=== PATIENT | female | born 1955 | race Caucasian/White ===

== ENCOUNTER 2017-02-10 17:28 | Emergency (ER) | payer OTHER ==
[2017-02-10 17:51] VITALS: BP 130/47
--- NOTE | 2017-02-10 18:05 | UC ---
Abdominal Pain Female HPI - HPI Summary HPI Summary: 61 year old female c/o increasing abdominal pain, flank pain. was diagnosed with UTI at 6 start and started on ABX, received call that ABX did not have coverage and was changed to Macrobid, since has been taking has had increasing diarrhea, increasing pain that is colicy in nature. Patient feels she will "loose it" due to pain. - History of Current Complaint Chief Complaint: UCBackPain Stated Complaint: BACK AND RIBS PAIN Time Seen by Provider: 02/10/17 17:45 Hx Obtained From: Patient, Family/Capital Equipment Specialist ?: No Onset/Duration: Sudden Onset, Lasting Days Timing: Constant Severity Initially: Moderate Severity Currently: Severe Pain Intensity: 10 Pain Scale Used: 0-10 Numeric Allergies/Adverse Reactions: Allergies Allergy/AdvReac Type Severity Reaction Status Date / Time No Known Allergies Allergy Verified 02/10/17 17:51 PMH/Surg Hx/FS Hx/Imm Hx Previously Healthy: Yes - Surgical History Surgical History: Yes Surgery Procedure, Year, and Place[place] [place] [facility] [place] - Social History Alcohol Use: None Substance Use Type: None Smoking Status (MU): Former Smoker Amount Used/How Often: 1 PPD X 25 YEARS When Did the Patient Quit Smoking/Using Tobacco: 5+ YEARS AGO Review of Systems Gastrointestinal: Abdominal Pain, Vomiting, Diarrhea, Nausea Is Patient Immunocompromised?: No All Other Systems Reviewed And Are Negative: Yes Physical Exam Triage Information Reviewed: Yes Appearance: Well-Nourished, Pain Distress - severe Vital Signs: Initial Vital Signs Temp 97.0 F 02/10/17 17:46 Pulse 97 02/10/17 17:46 Resp 18 02/10/17 17:46 BP 130/47 02/10/17 17:46 Pulse Ox 100 02/10/17 17:46 Eyes: Positive: Conjunctiva Clear Abdomen Description: Positive: Nontender, No Organomegaly, Soft, Distended. Negative: CVA Tenderness (R), CVA Tenderness (L) Musculoskeletal Exam: Normal Neurological Exam: Normal Psychological Exam: Normal Abd Pain Female Course/Dx - Course Course Of Treatment: due to severity of symptoms, patient was advised to go to ER. ambulace was offerred with further care, medications here at , however patient elected to drive herself due to cost. - Differential Dx/Diagnosis Provider Diagnoses: abdominal pain Discharge - Discharge Plan Condition: Good Disposition: OTHER Discharge Disposition Comment: gaurded, sent to ER for further work up Referrals: Aly Haq MD [Primary Care Provider] - Additional Instructions: - patient to go to ER due to increasing pain and further work up needed.
== END 2017-02-10 18:04 ==
LOC: UCEAST 17:28
DX: R10.9 Unspecified abdominal pain (principal); M54.5 Low back pain; R11.2 Nausea with vomiting, unspecified; R19.7 Diarrhea, unspecified; Z87.440 Personal history of urinary (tract) infections; Z87.891 Personal history of nicotine dependence
CPT/HCPCS: 99211; G0463

== ENCOUNTER 2017-02-10 18:19 | Emergency (ER) | payer OTHER ==
[2017-02-10] MEDS ORDERED: NS 0.9% 1000 ML* 1,000 ML IV ONE ×2 (18:45→20:01)
[2017-02-10 19:02] LABS: Hematocrit 38 % (35-47); Hemoglobin 13.1 g/dl (12.0-16.0); Mean Corpuscular HGB Conc 34 g/dl (31-36); Mean Corpuscular Hemoglobin 30 pg (27-31); Mean Corpuscular Volume 88 fL (80-97); Mean Platelet Volume 8 um3 (7.4-10.4); Red Blood Count 4.32 10^6/ul (4.0-5.4); Red Cell Distribution Width 13 % (10.5-15); White Blood Count 11.1 10^3/ul (3.5-10.8)
[2017-02-10 19:18] LABS: Albumin 4.1 g/dL (3.2-5.2); BUN/Creatinine Ratio 16.3 (8-20); C Reactive Protein 8.46 mg/L (< 5.00); EGFR African American 94.1 (>60); EGFR Non-African American 73.2 (>60); Globulin 3.3 g/dL (2-4); Magnesium 1.5 mg/dL (1.9-2.7); Potassium 3.9 mmol/L (3.5-5.0); Total Bilirubin 0.6 mg/dL (0.2-1.0); Total Protein 7.4 g/dL (6.4-8.9); Troponin I 0.01 ng/mL (<0.04)
[2017-02-10 19:34] LABS: Urine Bacteria Absent (Absent); Urine Bilirubin Negative (Negative); Urine Glucose Negative (Negative); Urine Nitrite Negative (Negative)
[2017-02-10] MEDS ORDERED: Magnesium Sulfate 2 GM IV* 2 GM/50 ML BAG IVPB ONE (20:00)
[2017-02-10] MEDS ORDERED: Iohexol 300* (CONTRAST) 10 ML SDV IV ONE (20:49)
--- NOTE | 2017-02-10 21:53 | RAD ---
INDICATION: Diffuse abdominal pain COMPARISON: None TECHNIQUE: Axial source images were obtained from the hemidiaphragms to the symphysis pubis following administration of oral and intravenous contrast. 91 mL Omnipaque 300 was utilized. Coronal and sagittal reconstructed images were acquired. Lung bases: The lung bases are clear. Liver: The liver is normal in size. There are no masses. There is no ductal dilatation. Gallbladder: There are no calcified gallstones. There is no evidence of wall thickening. There is a small amount of pericholecystic fluid. Spleen: The spleen is normal in size. There are no masses. Pancreas: There is no focal pancreatic mass or ductal dilatation. Adrenal glands: There is no evidence of adrenal mass. Kidneys: The kidneys are normal in size and position. There are prompt nephrograms and there is prompt excretion bilaterally. There are no renal parenchymal masses. There is no evidence of nephrolithiasis. Adenopathy: There is no evidence of adenopathy by size criteria. Fluid collections: There are no free or localized fluid collections. Vessels:There are no significant atherosclerotic changes involving the aorta. There is no focal aneurysm. The iliac vessels are normal in caliber. The IVC appears normal. GI tract: The upper GI tract is unremarkable. The ileocecal valve, cecum, and appendix are normal. There are scattered diverticula of the estrellita ascending, transverse, descending colon. There are moderate diverticula of the sigmoid colon. There is no CT evidence of acute diverticulitis. Pelvic organs: There is hysterectomy. There is no adnexal mass Bladder: There are no bladder masses. Abdominal and pelvic soft tissues: The extraperitoneal abdominal and pelvic soft tissues appear normal.. Osseous structures: There are no acute osseous findings. Other: None IMPRESSION: 1. Small amount of pericholecystic fluid. 2. Moderate diverticula predominantly involving the sigmoid colon. No CT evidence of acute diverticulitis. 3. Hysterectomy
--- NOTE | 2017-02-10 22:50 | ED ---
Joseph Dumont Alfonso, scribed for Shad Burns MD on 02/10/17 at 1946 . Abdominal Pain/Female - HPI Summary HPI Summary: This patient is a 61 year old F presenting to [facility] accompanied by with a chief complaint of shooting upper abdominal and bilateral flank pain which began last night, and is currently resolved. The pain radiated to her back. She had a UTI since two weeks ago for which she was put on Bactrium and then changed to macrobid yesterday (she has taken 3 pills). The patient rates the pain 8/10 in severity. Symptoms aggravated by position (sitting down). Symptoms alleviated by spontaneous resolution. Patient reports chills, nausea, and diarrhea (last night). Patient denies urinary symptoms. - History of Current Complaint Chief Complaint: EDGeneral Stated Complaint: ABD PAIN Time Seen by Provider: 02/10/17 19:15 Hx Obtained From: Patient Onset/Duration: Gradual Onset, Lasting Days - LAST NIGHT, Resolved Timing: Constant Severity Currently: Severe Pain Intensity: 10 Pain Scale Used: 0-10 Numeric Location: Flank - bilateral, Other - upper Radiates: Yes Radiates to: Back Character: Other: - Shooting Aggravating Factor(s): Other: - Position Alleviating Factor(s): Spontaneous Resolution Associated Signs and Symptoms: Positive: Other: - chills, nausea, and diarrhea ( last night). Patient denies urinary symptoms. Allergies/Adverse Reactions: Allergies Allergy/AdvReac Type Severity Reaction Status Date / Time No Known Allergies Allergy Verified 02/10/17 17:51 PMH/Surg Hx/FS Hx/Imm Hx Endocrine/Hematology History: Reports: Hx Thyroid Disease - HYPOTHYROID Denies: Hx Diabetes Cardiovascular History: Reports: Other Cardiovascular Problems/Disorders - HIGH CHOLESTEROL Denies: Hx Hypertension Respiratory History: Denies: Hx Asthma, Hx Chronic Obstructive Pulmonary Disease (COPD) GI History: Denies: Hx Ulcer Musculoskeletal History: Reports: Hx Arthritis - CONNECTIVE TISSUE DISEASE Sensory History: Reports: Hx Contacts or Glasses - GLASSES Denies: Hx Hearing Aid Opthamlomology History: Reports: Hx Contacts or Glasses - GLASSES EENT History: Denies: Hx Deafness - Cancer History Hx Chemotherapy: No Hx Radiation Therapy: No - Surgical History Surgery Procedure, Year, and Place: [facility] [place] Hx Anesthesia Reactions: No Infectious Disease History: No Infectious Disease History: Denies: Hx Clostridium Difficile, Hx Hepatitis, Hx Human Immunodeficiency Virus (HIV), Hx of Known/Suspected MRSA, Hx Shingles, Hx Tuberculosis, Hx Known/ Suspected VRE, Hx Known/Suspected VRSA, History Other Infectious Disease, Traveled Outside the [place] in Last 30 Days - Family History Known Family History: Positive: Cardiac Disease, Hypertension, Diabetes, Other - CVA - Social History Alcohol Use: Rare Substance Use Type: Reports: None Smoking Status (MU): Former Smoker Amount Used/How Often: 1 PPD X 25 YEARS Review of Systems Positive: Chills. Negative: Fever Positive: Abdominal Pain, Diarrhea, Nausea Positive: no symptoms reported All Other Systems Reviewed And Are Negative: Yes Physical Exam - Summary Physical Exam Summary: General: well-appearing, no pain distress Skin: warm, color reflects adequate perfusion, dry Head: normal Eyes: EOMI, ODALYS ENT: normal Neck: supple, nontender Respiratory: CTA, breath sounds present Cardiovascular: RRR Abdomen: soft, Mild diffuse abdominal tenderness Bowel: present Musculoskeletal: normal, strength/ROM intact Neurological: normal, sensory/motor intact, A&O x3 Psychological: affect/mood appropriate Triage Information Reviewed: Yes Vital Signs On Initial Exam: Initial Vitals Temp Pulse Resp BP Pulse Ox 97.2 F 89 20 85/68 100 02/10/17 18:21 02/10/17 18:21 02/10/17 18:21 02/10/17 18:21 02/10/17 18:21 Vital Signs Reviewed: Yes - [place] Coma Scale Coma Scale Total: 15 Diagnostics - Vital Signs Vital Signs Temp Pulse Resp BP Pulse Ox 02/10/17 19:20 114/44 02/10/17 19:00 133/110 02/10/17 18:33 87 100 02/10/17 18:32 125/50 02/10/17 18:21 97.2 F 89 20 85/68 100 - Laboratory Lab Results: Lab Results 02/10/17 02/10/17 02/10/17 Range/Units 18:48 18:48 18:48 WBC 11.1 H (3.5-10.8) 10^3/ul RBC 4.32 (4.0-5.4) 10^6/ul Hgb 13.1 (12.0-16.0) g/dl Hct 38 (35-47) % MCV 88 (80-97) fL MCH 30 (27-31) pg MCHC 34 (31-36) g/dl RDW 13 (10.5-15) % Plt Count 228 (150-450) 10^3/ul MPV 8 (7.4-10.4) um3 Neut % (Auto) 83.8 H (38-83) % Lymph % (Auto) 8.5 L (25-47) % Holt % (Auto) 5.6 (1-9) % Eos % (Auto) 1.3 (0-6) % Baso % (Auto) 0.8 (0-2) % Absolute Neuts (auto) 9.3 H (1.5-7.7) 10^3/ul Absolute Lymphs (auto) 0.9 L (1.0-4.8) 10^3/ul Absolute Monos (auto) 0.6 (0-0.8) 10^3/ul Absolute Eos (auto) 0.1 (0-0.6) 10^3/ul Absolute Basos (auto) 0.1 (0-0.2) 10^3/ul Absolute Nucleated RBC 0 10^3/ul Nucleated RBC % 0 Sodium 138 (133-145) mmol/L Potassium 3.9 (3.5-5.0) mmol/L Chloride 105 (101-111) mmol/L Carbon Dioxide 26 (22-32) mmol/L Anion Gap 7 (2-11) mmol/L BUN 13 (6-24) mg/dL Creatinine 0.80 (0.51-0.95) mg/dL Est GFR ( Amer) 94.1 (>60) Est GFR (Non-Af Amer) 73.2 (>60) BUN/Creatinine Ratio 16.3 (8-20) Glucose 128 H (70-100) mg/dL Lactic Acid 1.2 (0.5-2.0) mmol/L Calcium 9.0 (8.6-10.3) mg/dL Magnesium 1.5 L (1.9-2.7) mg/dL Total Bilirubin 0.60 (0.2-1.0) mg/dL AST 16 (13-39) U/L ALT 21 (7-52) U/L Alkaline Phosphatase 83 (34-104) U/L Troponin I 0.01 (<0.04) ng/mL C-Reactive Protein 8.46 H (< 5.00) mg/L Total Protein 7.4 (6.4-8.9) g/dL Albumin 4.1 (3.2-5.2) g/dL Globulin 3.3 (2-4) g/dL Albumin/Globulin Ratio 1.2 (1-3) Lipase 88 H (11.0-82.0) U/L Urine Color Urine Appearance Urine pH (5-9) Ur Specific [place] (1.010-1.030) Urine Protein (Negative) Urine Ketones (Negative) Urine Blood (Negative) Urine Nitrate (Negative) Urine Bilirubin (Negative) Urine Urobilinogen (Negative) Ur Leukocyte Esterase (Negative) Urine WBC (Auto) (Absent) Urine RBC (Auto) (Absent) Ur Squamous Epith Cells (Absent) Urine Bacteria (Absent) Hyaline Casts (Absent) Urine Glucose (Negative) 02/10/17 Range/Units 19:15 WBC (3.5-10.8) 10^3/ul RBC (4.0-5.4) 10^6/ul Hgb (12.0-16.0) g/dl Hct (35-47) % MCV (80-97) fL MCH (27-31) pg MCHC (31-36) g/dl RDW (10.5-15) % Plt Count (150-450) 10^3/ul MPV (7.4-10.4) um3 Neut % (Auto) (38-83) % Lymph % (Auto) (25-47) % Holt % (Auto) (1-9) % Eos % (Auto) (0-6) % Baso % (Auto) (0-2) % Absolute Neuts (auto) (1.5-7.7) 10^3/ul Absolute Lymphs (auto) (1.0-4.8) 10^3/ul Absolute Monos (auto) (0-0.8) 10^3/ul Absolute Eos (auto) (0-0.6) 10^3/ul Absolute Basos (auto) (0-0.2) 10^3/ul Absolute Nucleated RBC 10^3/ul Nucleated RBC % Sodium (133-145) mmol/L Potassium (3.5-5.0) mmol/L Chloride (101-111) mmol/L Carbon Dioxide (22-32) mmol/L Anion Gap (2-11) mmol/L BUN (6-24) mg/dL Creatinine (0.51-0.95) mg/dL Est GFR ( Amer) (>60) Est GFR (Non-Af Amer) (>60) BUN/Creatinine Ratio (8-20) Glucose (70-100) mg/dL Lactic Acid (0.5-2.0) mmol/L Calcium (8.6-10.3) mg/dL Magnesium (1.9-2.7) mg/dL Total Bilirubin (0.2-1.0) mg/dL AST (13-39) U/L ALT (7-52) U/L Alkaline Phosphatase (34-104) U/L Troponin I (<0.04) ng/mL C-Reactive Protein (< 5.00) mg/L Total Protein (6.4-8.9) g/dL Albumin (3.2-5.2) g/dL Globulin (2-4) g/dL Albumin/Globulin Ratio (1-3) Lipase (11.0-82.0) U/L Urine Color Yellow Urine Appearance Clear Urine pH 5.0 (5-9) Ur Specific [place] 1.024 (1.010-1.030) Urine Protein Negative (Negative) Urine Ketones Negative (Negative) Urine Blood Negative (Negative) Urine Nitrate Negative (Negative) Urine Bilirubin Negative (Negative) Urine Urobilinogen Negative (Negative) Ur Leukocyte Esterase Trace H (Negative) Urine WBC (Auto) Trace(0-5/hpf) (Absent) Urine RBC (Auto) Absent (Absent) Ur Squamous Epith Cells Present H (Absent) Urine Bacteria Absent (Absent) Hyaline Casts Present H (Absent) Urine Glucose Negative (Negative) Result Diagrams: 02/10/17 18:48 02/10/17 18:48 Lab Statement: Any lab studies that have been ordered have been reviewed, and results considered in the medical decision making process. - CT A/P CT Interpretation Completed By: Radiologist - 1. Small amount of pericholecystic fluid. 2. Moderate diverticula predominantly involving the sigmoid colon. No CT evidence of acute diverticulitis. 3. Hysterectomy. ED physician has reviewed this radiology report and agrees. - EKG 1853 Cardiac Rate: NL - BPM 88 EKG Rhythm: Sinus Rhythm ST Segment: Normal Ectopy: None Abdominal Pain Fem Course/Dx - Course Course Of Treatment: PAIN GREATLY REDUCED IN THE ED. PATIENT WAS TENDER IN THE UPPER ABD/EPIGASTRIUM. TROPONIN 7 HOURS AFTER ONSET OF PAIN WAS NEGATIVE. DISCUSSED RESULTS (TO INCLUDE THE MILDLY ELEVATED LIPASE) AND POSSIBLE CAUSES WITH PATIENT/. WITH THE PAIN GONE IN THE ED, WILL F/U WITH PMD; RETURN TO THE ED IF WORSE. - Diagnoses Provider Diagnoses: Abdominal pain, Chest pain, Elevated lipase Discharge - Discharge Plan Condition: Stable Disposition: HOME Patient Education Materials: Acute Abdominal Pain (ED), Chest Pain (ED) Referrals: Aly Haq MD [Primary Care Provider] - Additional Instructions: FOLLOW UP WITH YOUR DOCTOR TOMORROW, 02/11/17. RETURN TO THE EMERGENCY DEPARTMENT FOR ANY WORSENING OF YOUR CONDITION; CHEST OR ABDOMINAL PAIN, FEVER, VOMITING, SHORTNESS OF BREATH, YOU FEEL ILL OR QUESTIONS OR CONCERNS. The documentation as recorded by the Joseph lea Alfonso accurately reflects the service I personally performed and the decisions made by me, Shad Burns MD.
[2017-02-10 23:07] VITALS: BP 122/47
== END 2017-02-10 23:07 | disposition home or self-care (01) ==
LOC: ED 18:19
DX: R07.9 Chest pain, unspecified (principal); R10.9 Unspecified abdominal pain; R19.7 Diarrhea, unspecified; R74.8 Abnormal levels of other serum enzymes
CPT/HCPCS: 36415; 74177; 80053; 81003; 81015; 83605; 83690; 83735; 84443; 84484; 85025; 86140; 87086; 93005; 96365; 99283; J3475; Q9967

== ENCOUNTER 2018-02-09 10:24 | Day surgery (SDC) | payer OTHER ==
[~2018-02-09 10:24] MED LIST: Acetaminophen TAB* 325 MG PO PRN; Buffered Lidocaine 0.9% SYRIN* 5 ML/SYR SYRINGE INTRADERM ONE
[2018-02-09] MEDS ORDERED: Midazolam* 1 MG/ML 2 ML VIAL (2 MG) ONE ×2 (11:59→12:59)
[2018-02-09] MEDS ORDERED: fentaNYL* 50 MCG/ML 2 ML VIAL (100 MCG VIAL) ONE (11:59)
[2018-02-09 12:53] VITALS: BP 111/55
[2018-02-09] MEDS ORDERED: Cyclopentolate 1% OPTH.SOL* 2 ML BTL ONE (15:31)
[2018-02-09] MEDS ORDERED: Ketorolac 0.5% OPHTH (NF) 0.5 % 5 ML BTL ONE (15:31)
[2018-02-09] MEDS ORDERED: Neomycin/Polymy/Dex OPHTH.OIN* 3.5 GM ONE (15:31)
[2018-02-09] MEDS ORDERED: Tropicamide 1% OPTH.SOL* BTL ONE (15:31)
[2018-02-09] MEDS ORDERED: Phenylephrine 2.5% OPTH.SOL* 2 ML BTL ONE (15:31)
[2018-02-09] MEDS ORDERED: Tetracaine 0.5% OPTH.SOL 4 ML* 1 DROP BTL ONE (15:31)
[2018-02-09] MEDS ORDERED: Lidocaine 1%* 5 ML VIAL ONE (15:31)
--- NOTE | 2018-02-09 22:06 | OP ---
DATE OF OPERATION: 02/09/18 - [facility] DATE OF : 57 SURGEON: Dr. Konstantin Singh. LAND SURVEYING SURVEY WORKER: None. ANESTHESIA: Topical with intravenous sedation. PRE-OP DIAGNOSIS: Cataract with stigmatism, right eye. POST-OP DIAGNOSIS: Cataract with stigmatism, right eye. OPERATIVE PROCEDURE: Phacoemulsification and cataract extraction with posterior chamber toric intraocular lens implant, right eye. COMPLICATIONS: None. BLOOD LOSS: None. DESCRIPTION OF PROCEDURE: The patient was seen preoperatively where roseanne was made at the 6 o'clock position of the limbus of the right eye while she was in an upright position. The patient was subsequently brought to the operating room where she was given a small amount of intravenous sedation as well as topical Tetracaine eye drops to the right eye. The patient was prepped and draped in the usual sterile fashion for ophthalmic surgery and attention was directed to the right eye where speculum was placed. A paracentesis was created at the 11 o'clock position and 0.1 cc of 1% preservative-free Lidocaine was injected into the anterior chamber followed by DisCoVisc. The eye was digitally stabilized. A 2.75 mm keratome was used to create a triplanar clear corneal incision at the 9 o'clock position. A continuous curvilinear capsulorrhexis was created with a cystotome and Utrata forceps. BSS on a cannula was used to hydrodissect the lens and the capsule. Phacoemulsification was performed in a [id number] technique to create four fragments, which were removed. Residual cortical material was removed with irrigation and aspiration. Healon was used to inflate the capsular bag. A Miller marker was used to roseanne the 113 degree axis at the limbus. An [id number] diopter lens was folded and inserted into the capsular bag. It was dialed to the appropriate axial alignment using Sinskey hook. The Sinskey hook remained in the eye through paracentesis to stabilize the lens while irrigation and aspiration were performed to remove viscoelastic from the eye. The paresthesia was removed. BSS on a cannula was used to hydrate the corneal stroma and seal the wound. At the end of the case, the pupil was round. The lens was centered and stable and axially aligned. The eye pressure appeared normal and the wound was water tight. The speculum was removed from the eye. Topical Maxitrol ointment was placed on the surface of the eye. Eye was closed, patched and shielded and the patient was sent to the recovery room in stable condition with postop instructions and follow-up appointment given. [id number]/CPS #: [id number] MTDD
== END 2018-02-09 12:55 | disposition home or self-care (01) ==
LOC: OREAST 10:24
PROVIDERS: ATTEND Ophthalmology
DX: H25.11 Age-related nuclear cataract, right eye (principal); H52.201 Unspecified astigmatism, right eye; I10 Essential (primary) hypertension; Z87.891 Personal history of nicotine dependence; E03.9 Hypothyroidism, unspecified; J30.89 Other allergic rhinitis; M32.9 Systemic lupus erythematosus, unspecified
CPT/HCPCS: A9270-GY; J2250; J3010; V2787

== ENCOUNTER 2018-02-16 08:29 | Day surgery (SDC) | payer OTHER ==
[2018-02-16] MEDS ORDERED: fentaNYL* 50 MCG/ML 2 ML VIAL (100 MCG VIAL) ONE (09:06)
[2018-02-16] MEDS ORDERED: Midazolam* 1 MG/ML 2 ML VIAL (2 MG) ONE (09:06)
[2018-02-16 10:27] VITALS: BP 104/50
[2018-02-16] MEDS ORDERED: Tetracaine 0.5% OPTH.SOL 4 ML* 1 DROP BTL ONE (12:25)
[2018-02-16] MEDS ORDERED: Lidocaine 1%* 5 ML VIAL ONE (12:25)
[2018-02-16] MEDS ORDERED: Cyclopentolate 1% OPTH.SOL* 2 ML BTL ONE (12:25)
[2018-02-16] MEDS ORDERED: Ketorolac 0.5% OPHTH (NF) 0.5 % 5 ML BTL ONE (12:25)
[2018-02-16] MEDS ORDERED: Neomycin/Polymy/Dex OPHTH.OIN* 3.5 GM ONE (12:25)
[2018-02-16] MEDS ORDERED: Tropicamide 1% OPTH.SOL* BTL ONE (12:25)
[2018-02-16] MEDS ORDERED: Phenylephrine 2.5% OPTH.SOL* 2 ML BTL ONE (12:25)
--- NOTE | 2018-02-16 21:15 | OP ---
DATE OF OPERATION: 02/16/18 [facility] DATE OF : 57 SURGEON: Dr. Konstantin Singh. CANARY RAISER: None. ANESTHESIA: Topical with intravenous sedation. PRE-OP DIAGNOSIS: Cataract, left eye. POST-OP DIAGNOSIS: Cataract, left eye. OPERATIVE PROCEDURE: Phacoemulsification and cataract extraction with posterior chamber intraocular lens implant, left eye. COMPLICATIONS: None. BLOOD LOSS: None. DESCRIPTION OF PROCEDURE: The patient was brought to the operating room and received a small amount of intravenous sedation. A drop of Tetracaine was placed in her left eye. She was prepped and draped in the usual sterile fashion for ophthalmic surgery and attention was directed to the left eye where a speculum was placed. A paracentesis was created at the 5 o'clock position and 0.1 cc of 1 percent preservative-free Lidocaine was injected into the anterior chamber followed by DisCoVisc. The eye was digitally stabilized while a 2.75 mm keratome was used to create a triplanar clear corneal incision at the 3 o'clock position. A continuous curvilinear capsulorrhexis was created with a cystotome and Utrata forceps. BSS on a cannula was used to hydrodissect the lens from the capsule. Phacoemulsification was performed in a divide-and- conquer technique to create four fragments which were removed. Residual cortical material was removed with irrigation and aspiration. DisCoVisc was used to inflate the capsular bag and an [id number] 28.0 diopter lens was folded and inserted into the capsular bag. DisCoVisc was removed using irrigation and aspiration. BSS on a cannula was used to hydrate the corneal stroma and seal the wound. At the end of the case the pupil was round and the lens was centered. The eye was of normal pressure and the wound was water tight. The speculum was removed and topical Maxitrol ointment was placed on the surface of the eye. The eye was closed, patched and shielded and the patient was sent to the recovery room in stable condition with post operative instructions and follow-up appointment given. [id number]/CPS #: [id number] MTDD
== END 2018-02-16 10:31 | disposition home or self-care (01) ==
LOC: OREAST 08:29
PROVIDERS: ATTEND Ophthalmology
DX: Z01.818 Encounter for other preprocedural examination (principal); H25.13 Age-related nuclear cataract, bilateral; E78.00 Pure hypercholesterolemia, unspecified; E03.9 Hypothyroidism, unspecified; M35.9 Systemic involvement of connective tissue, unspecified; Z87.891 Personal history of nicotine dependence
CPT/HCPCS: A9270-GY; J2250; J3010; V2632

== ENCOUNTER 2018-11-21 19:22 | Emergency (ER) | payer OTHER ==
[2018-11-21 19:39] VITALS: BP 133/61
--- NOTE | 2018-11-21 20:12 | UC ---
Respiratory Complaint HPI - HPI Summary HPI Summary: 2 WEEKS OF URI SYMPTOMS INCLUDING COUGH, CONGESTION, SORE THROAT AND FATIGUE. FEELS HER SYMPTOMS HAVE MOVED INTO HER CHEST. NASAL CONGESTION HAS RESOLVED AND HER HEAD SYMPTOMS ARE IMPROVED BUT SHE IS CONCERNED ABOUT BRONCHITIS OR PNEUMONIA. - History of Current Complaint Chief Complaint: UCRespiratory Stated Complaint: CHEST CONGESTION Time Seen by Provider: 11/21/18 19:57 Hx Obtained From: Patient Onset/Duration: Gradual Onset, Lasting Weeks, Still Present Timing: Constant Severity Initially: Moderate Severity Currently: Moderate Pain Intensity: 0 Pain Scale Used: 0-10 Numeric Character: Cough: Nonproductive Aggravating Factors: Nothing Alleviating Factors: Nothing Associated Signs And Symptoms: Positive: URI, Nasal Congestion. Negative: Dyspnea, Fever, Wheezing, Hoarseness, Sinus Discomfort - Allergies/Home Medications Allergies/Adverse Reactions: Allergies Allergy/AdvReac Type Severity Reaction Status Date / Time No Known Allergies Allergy Verified 11/21/18 19:40 Home Medications: Home Medications Ibuprofen TAB* [Motrin TAB* 800 MG] 800 mg PO Q6H PRN 11/21/18 [History Confirmed 11/21/18] [id number] ER TAB [Mucinex*] 1,200 mg PO BID 11/21/18 [History Confirmed ] PMH/Surg Hx/FS Hx/Imm Hx - Additional Past Medical History Additional PMH: LUPUS Endocrine History: Hypothyroidism Cardiovascular History: Hypertension - Surgical History Surgical History: Yes Surgery Procedure, Year, and Place: [place] [place] - Family History Known Family History: Positive: Cardiac Disease, Hypertension, Diabetes, Other - CVA - Social History Alcohol Use: Rare Substance Use Type: None Smoking Status (MU): Never Smoked Tobacco Amount Used/How Often: 1 PPD X 25 YEARS When Did the Patient Quit Smoking/Using Tobacco: 2009 Review of Systems All Other Systems Reviewed And Are Negative: Yes Constitutional: Positive: Fatigue ENT: Positive: Sore Throat, Nasal Discharge Respiratory: Positive: Cough Cardiovascular: Positive: Negative Gastrointestinal: Positive: Negative Physical Exam Triage Information Reviewed: Yes Appearance: Well-Appearing, No Pain Distress, Well-Nourished Vital Signs: Initial Vital Signs Temp 98.2 F 11/21/18 19:32 Pulse 77 11/21/18 19:32 Resp 16 11/21/18 19:32 BP 133/61 11/21/18 19:32 Pulse Ox 99 11/21/18 19:32 Vital Signs Reviewed: Yes Eyes: Positive: Conjunctiva Clear ENT: Positive: Hearing grossly normal, Pharynx normal, TMs normal Neck: Positive: Supple, Nontender, No Lymphadenopathy Respiratory Exam: Normal Cardiovascular Exam: Normal Abdomen Description: Positive: Soft Musculoskeletal: Positive: No Edema Neurological: Positive: Alert Psychological: Positive: Age Appropriate Behavior Skin: Negative: Rashes Respiratory Course/Dx - Course Course Of Treatment: PATIENT'S PRESENTATION IS NOT CONSISTENT WITH PNEUMONIA OR BACTERIAL INFECTION AT PRESENT. IF ANYTHING HER SYMPTOMS ARE SLIGHTLY BETTER NOW. NO INDICATION FOR CHEST X-RAY TODAY. WILL TREAT WITH PREDNISONE TO HELP WITH AIRWAY INFLAMMATION AND REFILL PATIENT'S ALBUTEROL INHALER. SHE DECLINES PRESCRIPTION COUGH MEDICINE STATING THAT OTC MUCINEX IS HELPFUL. IS IN AGREEMENT WITH HOLDING OFF ANTIBIOTICS FOR NOW AND WILL FOLLOW-UP IF SHE IS NOT IMPROVED WITH THE ABOVE TREATMENT. - Differential Dx/Diagnosis Provider Diagnosis: Acute bronchitis Discharge - Sign-Out/Discharge Documenting (check all that apply): Patient Departure All imaging exams completed and their final reports reviewed: No Studies - Discharge Plan Condition: Stable Disposition: HOME Prescriptions: Albuterol HFA INHALER* [Ventolin HFA Inhaler*] 2 puff INH Q4H PRN #1 mdi PRN Reason: Shortness Of Breath predniSONE TAB* [Deltasone TAB*] 50 mg PO DAILY #5 tab Patient Education Materials: Acute Bronchitis (ED) Referrals: Aly Haq MD [Primary Care Provider] - If Needed Additional Instructions: YOUR SYMPTOMS ARE LIKELY VIRALLY MEDIATED AND SHOULD RESOLVE ON THEIR OWN WITH TIME. NO INDICATION FOR ANTIBIOTICS AT PRESENT. CLINICALLY YOUR PRESENTATION IS NOT CONSISTENT WITH PNEUMONIA. REST, HYDRATE, OTC MEDS NEEDED. WILL TREAT WITH PREDNISONE TO HELP WITH AIRWAY INFLAMMATION AND REFILL YOUR ALBUTEROL INHALER. SEEK FOLLOW-UP IF YOU ARE NOT IMPROVING OVER THE NEXT WEEK OR SO. - Billing Disposition and Condition Condition: STABLE Disposition: Home
== END 2018-11-21 20:28 | disposition home or self-care (01) ==
LOC: UCEAST 19:22
DX: J20.9 Acute bronchitis, unspecified (principal); E03.9 Hypothyroidism, unspecified; I10 Essential (primary) hypertension
CPT/HCPCS: 99212; G0463

== ENCOUNTER 2019-01-26 18:30 | Emergency (ER) | payer OTHER ==
--- OUTSIDE RECORDS SUMMARY | 2019-01-26 18:56 | XMS REPORT | Continuity of Care Document ---
:1955 External Reference #:[id number] Author Name Obed Frost, FACC (transmitted by agent of provider Asya Kevin) Address [address] [place] [address] Care Team Providers Name Role Phone Aly Haq MD - Family Care Team Information Luncheonette Manager [phone] Medicine Yordy Hassan MD - Surgery Care Team Information Luncheonette Manager [phone] Problems Active Problems Provider Date Contusion of thigh Danny Singh M.D. Onset: 08/11/2018 Atherosclerosis of arteries of the Danny Singh M.D. Onset: 05/19/2018 extremities Social History Type Date Description Comments Sex Unknown ETOH Use Drinks Alcoholic Beverages Occasionally Tobacco Use Start: Unknown End: Patient is a former smoker 2009 quit Unknown Recreational Drug Use Denies Drug Use Smoking Status Reviewed: 01/12/19 Patient is a former smoker 2010 quit Exercise Type/Frequency Exercises regularly Allergies, Adverse Reactions, Alerts Active Allergies Reaction Severity Comments Date Wellbutrin Sucidial Ideation 10/08/2017 Pravastatin possible myalgias 10/08/2017 Inactive Allergies NKDA 01/16/2011 Medications Active Medications SIG Qnty Indications Ordering Date Provider Proair HFA Use as needed 8.500gm J45.998 Obed Frost, 11/11/2017 108(90Base) before activity DO FACC mcg/Act Aerosol Aspirin Adult Low Dose 1 by mouth every 90tabs R07.9 Obed Frost, day DO FACC 81mg Tablets DR Amlodipine Besylate 1 by mouth every 30tabs R07.9 Obed Frost, 2017 5mg day DO FACC Tablets Levothyroxine Sodium 1 po qd 30tabs Unknown 50mcg Tablets Ibuprofen by mouth qid as Unknown 800mg Tablets needed Plaquenil 2 tablet po Unknown 200mg Tablets daily Medications Administered in Office Medication SIG Qnty Indications Ordering Provider Date Technetium TC 99M Obed Frost, DO FACC 10/22/2017 Tetrofosmin, Per Unit Dose Up To 40 Millicuries Injection Immunizations Description No Information Available Vital Signs Date Vital Result Comment 01/12/2019 8:00am Height 64 inches 5'4" Weight 152.38 lb without shoes Heart Rate 80 /min radial BP Systolic Sitting 120 mmHg Lue BP Diastolic Sitting 78 mmHg Lue BMI (Body Mass Index) 26.2 kg/m2 08/11/2018 9:58am Height 64 inches 5'4" Weight 155.00 lb Heart Rate 68 /min BP Systolic Sitting 116 mmHg BP Diastolic Sitting 70 mmHg Respiratory Rate 16 /min BMI (Body Mass Index) 26.6 kg/m2 Results Description No Information Available Procedures Description No Information Available Medical Devices Description No Information Available Encounters Type Date Location Provider Dx Diagnosis Office Visit 01/12/2019 Keven [facility] I70.222 [facility] [place] 8:15a Medicine Of Jacob Singh M.D. arteries of extremities w rest pain, left leg Office Visit 12/13/2018 [facility] [place] Samantha K52.9 Noninfective 9:46a Assoc,pc Alexia Dotnic, gastroenteritis and Hospitalists EXPORT FREIGHT MANAGER colitis, unspecified D64.9 Anemia, unspecified K92.2 Gastrointestinal hemorrhage, unspecified Office Visit 12/11/2018 9:45a [facility] [place] Assoc,pc Brigid Shortle, K92.1 [facility] Hospitalists EXPORT FREIGHT MANAGER R10.9 Unspecified abdominal pain D72.829 Elevated white blood cell count, unspecified Office Visit 08/11/2018 9:15a [facility] Danny Stratton I70.223 [facility] [place] Medicine Of Jacob Singh M.D. arteries of extrm w rest pain, bilateral legs S70.11xA Contusion of right thigh, initial encounter Assessments Date Code Description Provider 01/12/2019 I70.222 Atherosclerosis of [place] arteries of Danny Singh M.D. extremities with rest pain, left leg 12/13/2018 K52.9 Noninfective gastroenteritis and Samantha [place] Bennett, MARIANNA colitis, unspecified 12/13/2018 D64.9 Anemia, unspecified Samantha [place] Bennett, EXPORT FREIGHT MANAGER 12/13/2018 K92.2 Gastrointestinal hemorrhage, Samantha [place] Bennett, EXPORT FREIGHT MANAGER unspecified 12/12/2018 K52.9 Noninfective gastroenteritis and NASIM Sen colitis, unspecified 12/11/2018 K92.1 [facility] Brigid Marizol, EXPORT FREIGHT MANAGER 12/11/2018 R10.9 Unspecified abdominal pain Brigid Marizol, EXPORT FREIGHT MANAGER 12/11/2018 D72.829 Elevated white blood cell count, Brigid Duquesravan, EXPORT FREIGHT MANAGER unspecified 08/11/2018 I70.223 Atherosclerosis of [place] arteries of Danny Singh M.D. extremities with rest 08/11/2018 S70.11xA Contusion of right thigh, initial Danny Singh M.D. encounter Plan of Treatment 01/12/2019 - Danny Singh M.D.I70.222 Atherosclerosis of [place] arteries of extremities with rest pain, left legNew Labs:Basic Metabolic Panel, Ordered: New Xrays:Angio Pelvic Selective Supraselect, Ordered: 01/12/19Comments: The following was discussed with Rahel at the time of her clinic visit:Although there was no significant change on the post angiography GUILLE, the patient appears to have experienced significant clinicalbenefit with near complete resolution of the claudication symptoms she had prior to angioplasty of the right common and external iliac arteries.The patient occasionally experiences pain in the left legconsistent with nighttime rest pain and based on her response to angioplasty on the right, she may experience further clinical improvement after similar angioplasty in the left iliac arteries. Functional Status Description No Information Available Mental Status Description No Information Available Referrals Description No Information Available
--- OUTSIDE RECORDS SUMMARY | 2019-01-26 18:56 | XMS REPORT | Continuity of Care Document ---
:1955 External Reference #:[id number] Author Name Selin Tamayo, MARIANNA Address [address] [place] [address] Care Team Providers Name Role Phone [facility] - Care Team Information Relief Docking Master [phone] Gastroenterology Elie Diaz MD - Rheumatology Care Team Information Relief Docking Master Aly Haq MD - Family Medicine Care Team Information Relief Docking Master Konstantin Singh - Ophthalmology Care Team Information Relief Docking Master [phone] Bladimir Velazquez DO - Gastroenterology Care Team Information Relief Docking Master Problems Active Problems Provider Date Hypothyroidism Aly Haq M.D. Onset: 12/28/2010 Autoimmune disease Barbara Patel Onset: 06/01/2012 Collagen disease Aly Haq M.D. Onset: 04/04/2014 Hyperlipidemia Aly Haq M.D. Onset: 04/04/2014 Other malaise Aly Haq M.D. Onset: 06/26/2015 Social History Type Date Description Comments Sex Unknown Tobacco Use Start: 04/20/80 End: Former Cigarette Smoker > 1 ppd 04/20/09 ETOH Use Social Alcohol 3 Kaluas /month. frozen anish. Tobacco Use Start: Unknown End: Patient is a former smoker Unknown Smoking Status Reviewed: 01/25/19 Patient is a former smoker Allergies, Adverse Reactions, Alerts Active Allergies Reaction Severity Comments Date Wellbutrin Itching? 07/02/2005 Medications Active Medications SIG Qnty Indications Ordering Date Provider Nitrofurantoin 1 by mouth twice 10caps N39.0 Selin Samara 01/25/2019 Macrocrystal a day x 5 days MARIANNA Tamayo 100mg Capsules Montelukast Sodium 1 by mouth every 90Tablet J30.9 Aly Real 12/22/2018 10mg day Jennifer Haq Tablets Mometasone Furoate 2 sprays in each 17gm Raquel Peralta 12/17/2018 nostril once MARIANNA Ashraf 50mcg/Act Suspension daily Cetirizine HCL 1 by mouth every 30tabs Raquel Peralta 12/17/2018 10mg day MARIANNA Ashraf Tablets Betamethasone apply to 15gm L30.9 Raquel Peralta 12/17/2018 Dipropionate affected area on MARIANNA Ashraf 0.05% Cream legs twice daily for 14 days. Symbicort 1 puff inhaled 12gm J06.9 Raquel Peralta 12/03/2018 160-4.5mcg/Act twice daily MARIANNA Ashraf Aerosol Ventolin HFA take 1-2 puffs 18gm J06.9 Raquel Peralta 12/03/2018 108(90Base) inhaled every 4 MARIANNA Ashraf mcg/Act Aerosol hours as needed for wheezing or tightness in the chest Aspirin Takes daily 30tabs Aly Real 11/24/[address] Eun M.D. Levothyroxine Sodium Take 1 Tablet By 90tabs Aly Real 06/23/2013 Mouth Daily Jennifer Haq 50mcg Tablets Ibuprofen Take 1 Tablet By 360tabs M79.1 Neda Ren, 09/07/2009 800mg Tablets Mouth 4 Times COURSEWARE DEVELOPER Daily With Food Plaquenil 2 po qd 60tabs Unknown 200mg Tablets Amlodipine Besylate take 1 tablet by 30tabs Aly Real 5mg mouth once daily Jennifer Haq Tablets Pantoprazole Sodium 1 by mouth every Unknown 20mg day Tablets DR Nito Polk Fluconazole one tab by 2tabs B37.3 Raquel Ashraf, 12/17/2018 - 150mg mouth once, august EXPORT ADMINISTRATOR 12/22/2018 Tablets repeat in five days Benzonatate 1 tablet by 30caps J06.9 Aly Haq, 11/24/2018 - 100mg mouth three M.DRosario 12/22/2018 Capsules times a day as needed for cough (max 6 a day) Immunizations CPT Code Status Date Vaccine Lot # [id number] Given 12/17/2018 Pneumococcal Conjugate Vacc-13 [id number] Given 02/26/2018 Influenza Vac, Quadrivalent, [place] [id number] Given 08/24/2017 Tetanus And Diptheria Adult Preservative Free [id number] >7Yrs Vital Signs Date Vital Result Comment 01/25/2019 3:50pm BP Systolic 112 mmHg BP Diastolic 60 mmHg Heart Rate 80 /min Body Temperature 97.2 F Respiratory Rate 16 /min Height 63 inches 5'3" Weight 152.00 lb BMI (Body Mass Index) 26.9 kg/m2 12/22/2018 1:01pm BP Systolic 122 mmHg BP Diastolic 70 mmHg Heart Rate 76 /min Body Temperature 98.2 F Respiratory Rate 16 /min O2 % BldC Oximetry 98 % Height 63 inches 5'3" Weight 154.00 lb BMI (Body Mass Index) 27.3 kg/m2 Results Test Date Facility Test Result H/L Range Note Ua - Micro (Fma) 01/25/2019 [facility] Appearance cloudy (607)- - Color yellow Glucose, Urine ([facility]ma/CMC/CTX) neg Bilirubin neg Ketones ng SP Grav >1.030 Blood neg PH 5.5 Protein neg Urobil 0.2 Nitrite neg Leukocytes (a/CMC/Centrex) small Hyaline - /Lpf Granular - /Lpf WBC (a,Centrex) 20-25 RBC 0-1 Mucus (Fma/CBC/Centrex) - /Lpf Epith occ /Lpf Bacteria trace /Hpf Amorphous (Fma/CMC/Centrex) - /Lpf Crystals, Fluid (Fma/CMC/CTX) - Z#Comments - Laboratory test 01/14/2019 [facility] [place] [facility] [place] SEE RESULT 1, 2 finding BELOW Hemoglobin/Hematac 12/11/2018 [facility] [place] Hemoglobin 12.5 g/dL Normal 12.0-16. rit 0 Hematocrit 37 % Normal 35-47 Stool Occult Blood 12/11/2018 [facility] [place] Stool Occult SEE RESULT BELOW 3 Diag Blood, Diag CBC Auto Diff 12/11/2018 [facility] [place] White Blood Count 10.9 10^3/uL High 3.5- 10.8 Red Blood Count 4.74 10^6/uL Normal 3.70-4.87 Hemoglobin 14.3 g/dL Normal 12.0-16.0 Hematocrit 41 % Normal 35-47 Mean Corpuscular Volume 87 fL Normal 80-97 Mean Corpuscular Hemoglobin 30 pg Normal 27-31 Mean Corpuscular HGB Conc 35 g/dL Normal 31-36 Red Cell Distribution Width 13 % Normal 10-15 Platelet Count 262 10^3/uL Normal 150-450 Mean Platelet Volume 7.4 fL Normal 7.4-10.4 Abs Neutrophils 8.3 10^3/uL High 1.5-7.7 Abs Lymphocytes 1.6 10^3/uL Normal 1.0-4.8 Abs Monocytes 0.7 10^3/uL Normal 0-0.8 Abs Eosinophils 0.2 10^3/uL Normal 0-0.6 Abs Basophils 0.1 10^3/uL Normal 0-0.2 Abs Nucleated RBC 0.0 10^3/uL Granulocyte % 75.9 % Lymphocyte % 15.0 % Monocyte % 6.0 % Eosinophil % 2.1 % Basophil % 1.0 % Nucleated Red Blood Cells % 0.0 Laboratory test finding 12/11/2018 [facility] [place] Lactic Acid 1.0 mmol/L Normal 0.5- 2.0 4 Comp Metabolic Panel 12/11/2018 [facility] Sodium 137 mmol/L Normal 135-145 Potassium 4.2 mmol/L Normal 3.5-5.0 Chloride 106 mmol/L Normal 101-111 Co2 Carbon Dioxide 26 mmol/L Normal 22-32 Anion Gap 5 mmol/L Normal 2-11 Glucose 110 mg/dL High 70-100 Blood Urea Nitrogen 15 mg/dL Normal 6-24 Creatinine 0.82 mg/dL Normal 0.51-0.95 BUN/Creatinine Ratio 18.3 Normal 8-20 Calcium 8.9 mg/dL Normal 8.6-10.3 Total Protein 7.2 g/dL Normal 6.4-8.9 Albumin 4.2 g/dL Normal 3.2-5.2 Globulin 3.0 g/dL Normal 2-4 Albumin/Globulin Ratio 1.4 Normal 1-3 Total Bilirubin 0.60 mg/dL Normal 0.2-1.0 Alkaline Phosphatase 108 U/L High 34-104 Alt 17 U/L Normal 7-52 Ast 17 U/L Normal 13-39 Egfr Non- 70.6 >60 Egfr 85.5 >60 5 Laboratory test finding 12/11/2018 [facility] [place] Magnesium 2.1 mg/dL Normal 1.9- 2.7 Lipase 16 U/L Normal 11.0-82.0 C Reactive Protein 6.45 mg/L Normal <8.01 TSH (Thyroid Stim Horm) 2.46 mcIU/mL Normal 0.34-5.60 Urinalysis Profile 12/11/2018 [facility] [place] Urine Color Yellow Urine Appearance Clear Urine Specific [place] 1.040 High 1.010-1.030 Urine pH 5.0 Normal 5-9 Urine Urobilinogen Negative Negative Urine Ketones Negative Negative Urine Protein Negative Negative Urine Leukocytes 1+ Abnormal Negative Urine Blood Negative Negative Urine Nitrite Negative Negative Urine Bilirubin Negative Negative Urine Glucose Negative Negative Urine White Blood Cell 1+(6-10/hpf) Abnormal Absent Urine Red Blood Cell Absent Absent Urine Bacteria Absent Absent Urine Squamous Epithelial Cell Present Abnormal Absent Urine Culture And Sensitivities 12/11/2018 [facility] [place] Urine Culture SEE RESULT BELOW 6 1 [id number] 2 SEE RESULT BELOW Name: RAHEL GALVEZ : [address]: Bladimir Velazquez DO Acct: [id number] Unit: [id number] AGE: 63 Location: [facility] Re01/14/19 SEX: F Status: DEP REF SPEC: [id number] JIMENEZ: 01/14/19-[address] [facility] [address]: Bladimir Velazquez DO REQ: [id number] RECD: 01/14/19-1249 STATUS: MARTA SKAGGS DR: Aly Haq MD _ ORDERED: LEVEL 4/6 COMMENTS: [id number] FINAL DIAGNOSIS 1. Colon, right, biopsies: -- Large intestinal mucosa with mild architectural disorder compatible with repair. -- No evidence of microscopic/lymphocytic colitis, collagenous colitis or other chronic inflammatory bowel process identified. 2. Colon, cecum, biopsy: -- Serrated adenomatous polyp. -- No high grade dysplasia or malignancy identified. 3. Colon, cecum near valve, biopsy: -- Sessile serrated adenomatous polyp. -- No high grade dysplasia or malignancy identified. 4. Colon, sigmoid, biopsy: -- Hyperplastic polyp. 5. Colon, left, biopsy: -- Hyperplastic polyp. 6. Colon, rectum, biopsy: -- Hyperplastic polyp. CLINICAL HISTORY Colitis POST-OPERATIVE DIAGNOSIS Colonoscopy: to terminal ileum; 1.5 cm flat polyp; valve cecum; orise injection; endoclip; cold snare; 1 cm flat cecal polyp; orise; endoclip cold snare; biopsy polypectomy; sigmoid and rectal polyps (2) CONTINUED ON NEXT PAGE DEPARTMENT OF PATHOLOGY, [address] [place] [address] Shar Lester M.D. Director [facility] # [id number] GROSS DESCRIPTION 1. The specimen is received in formalin labeled, Right Colon Biopsy, and consists of two medel-white irregular soft tissue fragments measuring 0.6 x 0.2 x 0.1 cm and 0.9 x 0.2 x 0.1 cm which are submitted entirely in one cassette. 2. The specimen is received in formalin labeled, Cecal Polyp, and consists of a 1.0 x 0.8 by up to 0.3 cm aggregate of medel-pink irregular to polypoid soft tissue fragments which is submitted entirely in one cassette. 3. The specimen is received in formalin labeled, Cecal Polyp by Valve, and consists of a 1.2 x 0.7 by up to 0.3 cm aggregate of medel-pink irregular to polypoid soft tissue fragments which is submitted entirely in one cassette. 4. The specimen is received in formalin labeled, Sigmoid Polyp Biopsy, and consists of a 0.4 x 0.3 x 0.2 cm medel-pink irregular to polypoid soft tissue fragment which is submitted entirely in one cassette. 5. The specimen is received in formalin labeled, Left Sided Colon Biopsy, and consists of two medel-pink irregular soft tissue fragments measuring 0.3 x 0.3 x 0.1 cm and 0.6 by up to 0.2 x 0.1 cm which are submitted entirely in one cassette. 6. The specimen is received in formalin labeled, Rectal Polyp Biopsy, and consists of a 0.4 x 0.2 x 0.2 cm medel-pink irregular to polypoid soft tissue fragment which is submitted entirely in one cassette. Signed by and Reported on: Shar Lester MD 1242 END OF REPORT DEPARTMENT OF PATHOLOGY, [address] [place] [address] Shar Lester M.D. Director [facility] # [id number] 3 SEE RESULT BELOW Name: RAHEL GALVEZ : [address]: Juaquin Abreu MD Acct: [id number] Unit: [id number] AGE: 63 Location: ED Re12/11/18 SEX: F Status: REG ER SPEC: [id number] JIMENEZ: 12/11/[address] [facility] [address]: Juaquin Abreu MD REQ: [id number] RECD: 12/11/18 STATUS: COMP [facility] DR: Aly Haq MD _ SOURCE: STOOL SPDESC: ORDERED: Occult Bl, Diag Procedure Result Reported Site Stool Occult Blood (1) Final 12/11/18- 1003 ML Stool Occult Blood Positive * ML - Main Lab . END OF REPORT DEPARTMENT OF PATHOLOGY, [address] [place] [address] Shar Lester M.D. Director [facility] # [id number] [facility] Severe Sepsis and Septic Shock Management Bundle Measure requires all lactic acids initially measuring >2.0 mmol/L be repeated. 5 Because ethnic data is not always readily available, this report includes an eGFR for both -Americans and non- Americans. The National Kidney Disease Education Program (NKDEP) does not endorse the use of the MDRD equation for patients that are not between the ages of 18 and 70, are , have extremes of body size, muscle mass, or nutritional status, or are non- or non-. According to the National Kidney Foundation, irrespective of diagnosis, the stage of the disease is based on the level of kidney function: Stage Description GFR(mL/min/1.73 m(2)) 1 Kidney damage with normal or decreased GFR 90 2 Kidney damage with mild decrease in GFR 60-89 3 Moderate decrease in GFR 30-59 4 Severe decrease in GFR 15-29 5 Kidney failure <15 (or dialysis) 6 SEE RESULT BELOW Name: RAHEL GALVEZ : [address]: Elias Pierce MD Acct: [id number] Unit: [id number] AGE: 63 Location: [place] [address] Re12/11/18 SEX: F Status: ADM [place] SPEC: [id number] JIMENEZ: 12/11/[address]: Juaquin Abreu MD REQ: [id number] RECD: 12/11/18 STATUS: COMP NIKKI DR: Aly Haq MD _ SOURCE: URINE SPDESC: ORDERED: Urine Culture Procedure Result Reported Site Urine Culture Final 12/12/18- 1609 ML No Growth (<1,000 CFU/mL) * ML - Main Lab . END OF REPORT DEPARTMENT OF PATHOLOGY, [address] [place] [address] Shar Lester M.D. Director [facility] # [id number] Procedures Date Code Description Status 12/03/2018 66743 Pulse Oximetry Completed 09/08/2017 883213180 Bone Mineral Density Test Completed 09/03/2017 [id number] Mammogram Completed 07/16/2015 [id number] Mammogram Completed 11/21/2013 [id number] Mammogram Completed 06/02/2013 [id number] Mammogram Completed 08/08/2011 [id number] Colonoscopy Completed 08/24/2009 [id number] Mammogram Completed 08/17/2008 [id number] Mammogram Completed Medical Devices Description No Information Available Encounters Type Date Location Provider Dx Diagnosis Office Visit 12/22/2018 [facility] Aly Haq, M35.9 Systemic 1:10p M.D. 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 J30.9 Allergic rhinitis, unspecified Office Visit 12/17/2018 2:30p [place] Raquel Peralta A09 Infectious Office MARIANNA Ashraf gastroenteritis and colitis, unspecified J30.2 Other seasonal allergic rhinitis L30.9 Dermatitis, unspecified B37.3 Candidiasis of vulva and vagina K64.8 Other hemorrhoids Z23 Encounter for immunization Office Visit 12/03/2018 10:15a [facility] Raquel Peralta J06.9 Acute upper Andriy, MARIANNA respiratory infection, unspecified R06.02 Shortness of breath Office Visit 11/24/2018 8:00a [facility] Priya Ramos I10 Essential ( primary) NASIM Mccormick hypertension J06.9 Acute upper respiratory infection, unspecified I70.293 Oth athscl qagan [place] arteries of extremities, bilateral legs E78.49 Other hyperlipidemia Assessments Date Code Description Provider 01/25/2019 N39.0 Urinary tract infection, site not specified Selin Tamayo, MARIANNA 12/22/2018 M35.9 Systemic involvement of connective tissue, Aly Haq M.D. 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 12/22/2018 J30.9 Allergic rhinitis, unspecified Aly Haq M.D. 12/17/2018 A09 Infectious gastroenteritis and colitis, Raquel Ashraf NP unspecified 12/17/2018 J30.2 Other seasonal allergic rhinitis Raquel Ashraf NP 12/17/2018 L30.9 Dermatitis, unspecified Raquel Ashraf NP 12/17/2018 B37.3 Candidiasis of vulva and vagina Raquel Ashraf NP 12/17/2018 K64.8 Other hemorrhoids Raquel Ashraf NP 12/17/2018 Z23 Encounter for immunization Raquel Ahsraf NP 12/03/2018 J06.9 Acute upper respiratory infection, Raquel Ashraf NP unspecified 12/03/2018 R06.02 Shortness of breath Raquel Ashraf NP 11/24/2018 I10 Essential (primary) hypertension NASIM Ruiz 11/24/2018 J06.9 Acute upper respiratory infection, NASIM Ruiz unspecified 11/24/2018 I70.293 Other atherosclerosis of qagan tayagung[place] arteries of NASIM Ruiz extremities, joyce 11/24/2018 E78.49 Other hyperlipidemia NASIM Ruiz Plan of Treatment Future Appointment(s):02/15/2019 9:50 am - Aly Haq M.D. at [facility]01/25/2019 - Selin Tamayo, NPN39.0 Urinary tract infection, site not specifiedNew Medication:Nitrofurantoin Macrocrystal 100 mg - 1 by mouth twice a day x 5 daysComments:finish medication, drink plenty of fluids, call if symptoms don't improve, you develop fever >100.4, vomiting or symptoms worsenReviewed adverse side effects of medication. Advised to call the office if experiencing symptoms. Patient verbalized understanding.AllComments: Medication Management Patient Understands medications he 's taking? Yes No Are there Barriers to Adherence? Yes No Has the patient been asked about herbal supplements and therapies, andOTC meds? Yes No Care Plan1. Patient has been queried about patient's goals/preferences and functional/lifestyle goals at relevant visits. If relevant, describe: na2. Treatment goals as explained to the patient: above3. Are there barriers to meeting treatment goals? Yes No If Yes, please describe: comorbid conditions, polypharmacy 4. Self-Management goals as described to the patient: Yes NoAs always, we strongly encourage a healthy diet and making physical activity apart of your every day life. If you have questions about how or where to start, please contact the office. Functional Status Description No Information Available Mental Status Description No Information Available Referrals Refer to Reason for Referral Status Appt Date Bladimir Velazquez DO COLONOSCOPY Scheduled 01/14/[address] [place] [address] [phone] Shar Boland MD URGENT REFERRAL consult and treat- Scheduled 03/23/2019 cough/shortness of breath [address] [facility] [address] [phone] Aftab Escobar MD shortness of breath [facility] [address] [phone]
--- OUTSIDE RECORDS SUMMARY | 2019-01-26 18:56 | XMS REPORT | Continuity of Care Document ---
:1955 External Reference #:[id number] Author Name Danny Singh M.D. (transmitted by agent of provider Cristine Crews) Address [address] [place] [address] Care Team Providers Name Role Phone Aly Haq MD - Family Care Team Information Hydraulic Technician [phone] Medicine Yordy Hassan MD - Surgery Care Team Information Hydraulic Technician Problems Active Problems Provider Date Contusion of [...] Office Visit 01/12/2019 Keven Stratton I70.222 Athscl [place] 8:15a Medicine Of Jacob Singh M.D. arteries of extremities w rest pain, left leg Office Visit 12/13/2018 [facility] K52.9 Noninfective 9:46a Assoc,pc Alexia Dotnic, gastroenteritis and Hospitalists [employer] colitis, unspecified D64.9 Anemia, unspecified K92.2 Gastrointestinal hemorrhage, unspecified Office Visit 12/11/2018 9:45a [facility] Assoc, Brigid Shortle, K92.1 Melena Hospitalists [employer] R10.9 Unspecified abdominal pain D72.829 Elevated white blood cell count, unspecified Office Visit 08/11/2018 9:15a Keven Stratton I70.223 Athscl [place] Medicine Of Jacob Singh M.D. arteries of extrm w rest pain, bilateral legs S70.11xA Contusion of right thigh, initial encounter Assessments Date Code Description Provider 01/12/2019 I70.222 Atherosclerosis of [place] arteries of Danny Singh M.D. extremities with rest pain, left leg 12/13/2018 K52.9 Noninfective gastroenteritis and Samanthashanda Villasenorfield Bennett, [employer] colitis, unspecified 12/13/2018 D64.9 Anemia, unspecified Samantha Villasenorfield Bennett, [employer] MECH[employer]IC 12/13/2018 K92.2 Gastrointestinal hemorrhage, Samantha Hale Donald, [employer] unspecified 12/12/2018 K52.9 Noninfective gastroenteritis and NASIM Sen colitis, unspecified 12/11/2018 K92.1 Melena Brigid Marizol, [employer] 12/11/2018 R10.9 Unspecified abdominal pain Brigid Duquesravan, [employer] 12/11/2018 D72.829 Elevated white blood cell count, Brigid Fontana, [employer] unspecified 08/11/2018 I70.223 Atherosclerosis of [place] arteries of Danny Singh M.D. extremities with rest 08/11/2018 S70.11xA Contusion of right thigh, initial Danny Singh M.D. encounter Plan of Treatment Future Appointment(s):02/01/2019 8:40 am - Obed Frost DO FACC at [facility]01/12/2019 - Danny Singh M.D.I70.222 Atherosclerosis of [place] arteries of extremities with rest pain, left legNew Labs:Basic Metabolic Panel, Ordered: 01/12/19New Xrays:Angio Pelvic Selective Supraselect, Ordered: 01/12/19Comments:The following was discussed with Rahel at the [...]
--- OUTSIDE RECORDS SUMMARY | 2019-01-26 18:56 | XMS REPORT | Continuity of Care Document ---
:1955 External Reference #:[id number] Author Name Raquel Ashraf NP Address [address] [place] [address] Care Team Providers Name Role Phone [facility] - Care Team Information Computer Training Specialist [phone] Gastroenterology Elie Diaz MD - Rheumatology Care Team Information Computer Training Specialist Aly Haq MD - Family Medicine Care Team Information Computer Training Specialist Konstantin Singh - Ophthalmology Care Team Information Computer Training Specialist [phone] Bladimir Velazquez DO - Gastroenterology Care Team Information Computer Training Specialist Problems Active Problems Provider Date Hypothyroidism Aly [...] a former smoker Unknown Smoking Status Reviewed: 11/24/18 Patient is a former smoker Allergies, Adverse Reactions, Alerts Active Allergies Reaction Severity Comments Date Wellbutrin Itching? 07/02/2005 Medications Active Medications SIG Qnty Indications Ordering Date Provider Mometasone Furoate 2 sprays in each 17gm Raquel RamosRosario 12/17/2018 nostril once MARIANNA Ashraf 50mcg/Act Suspension daily Cetirizine HCL 1 by mouth every 30tabs Raquel RamosRosario 12/17/2018 10mg day Andriy [facility] DO[facility] Tablets Fluconazole one tab by mouth 2tabs B37.3 Raquel RamosRosario 12/17/2018 150mg once, may repeat MARIANNA Ashraf Tablets in five days Betamethasone apply to affected 15gm L30.9 Raquel RamosRosario 12/17/2018 Dipropionate area on legs MARIANNA Ashraf 0.05% twice daily for Cream 14 days. Symbicort 1 puff inhaled 12gm J06.9 Raquel Kathryn 12/03/2018 twice daily MARIANNA Ashraf 160-4.5mcg/Act Aerosol Ventolin HFA take 1-2 puffs 18gm J06.9 Raquel RamosRosario 12/03/2018 inhaled every 4 MARIANNA Ashraf 108(90Base) mcg/Act hours as needed Aerosol for wheezing or tightness in the chest Aspirin Takes daily 30tabs Aly Haq, 11/24/[address] Rodriguez Benzonatate 1 tablet by mouth 30caps J06.9 Aly Haq, 11/24/2018 100mg three times a day M.D. Capsules as needed for cough (max 6 a day) Levothyroxine Sodium take 1 tablet by 90tabs Aly Haq, 06/23/2013 mouth daily M.D. 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 Tablets Flagyl 1 by mouth Three Unknown 500mg Tablets Times A Day X 8 Days Cipro 1 by mouth twice Unknown 500mg Tablets a day X 8 Days Immunizations CPT Code Status Date Vaccine Lot # [id number] Given 12/17/2018 Pneumococcal Conjugate Vacc-13 [id number] Given 02/26/2018 Influenza Vac, Quadrivalent, [place] [id number] Given 08/24/2017 Tetanus And Diptheria Adult Preservative Free [id number] >7Yrs Vital Signs Date Vital Result Comment 12/17/2018 2:14pm BP Systolic 110 mmHg BP Diastolic 70 mmHg Heart Rate 96 /min Body Temperature 97.9 F Height 63 inches 5'3" Weight 154.00 lb BMI (Body Mass Index) 27.3 kg/m2 12/03/2018 9:47am BP Systolic 126 mmHg BP Diastolic 72 mmHg Heart Rate 88 /min Body Temperature 97.9 F Respiratory Rate 14 /min O2 % BldC Oximetry 97 % Height 63 inches 5'3" Weight 154.00 lb BMI (Body Mass Index) 27.3 kg/m2 Results Test Date Facility Test Result H/L Range Note Hemoglobin/Hematacrit 12/11/2018 [facility] Hemoglobin 12.5 g/dL Normal 12.0- 16.0 Hematocrit 37 % Normal 35-47 Stool Occult Blood 12/11/2018 [facility] Stool Occult SEE RESULT BELOW 1 Diag Blood, Diag CBC Auto Diff 12/11/2018 [facility] White Blood Count 10.9 10^3/uL High 3.5- [...] Cells % 0.0 Laboratory test finding 12/11/2018 [facility] Lactic Acid 1.0 mmol/L Normal 0.5- 2.0 2 Comp Metabolic Panel 12/11/2018 [facility] Sodium 137 mmol/L Normal 135-145 Potassium 4.2 [...] Egfr Non- 70.6 >60 Egfr 85.5 >60 3 Laboratory test finding 12/11/2018 [facility] Magnesium 2.1 mg/dL Normal 1.9- 2.7 Lipase 16 U/L Normal 11.0-82.0 C Reactive Protein 6.45 mg/L Normal <8.01 TSH (Thyroid Stim Horm) 2.46 mcIU/mL Normal 0.34-5.60 Urinalysis Profile 12/11/2018 [facility] Urine Color Yellow Urine Appearance Clear Urine Specific [place] 1.040 High 1.010-1.030 Urine pH 5.0 Normal [...] Abnormal Absent Urine Culture And Sensitivities 12/11/2018 [facility] Urine Culture SEE RESULT BELOW 4 1 SEE RESULT BELOW Name: RAHEL GALVEZ : [address]: Juaquin Abreu MD Acct: [id number] Unit: [id number] AGE: 63 Location: ED Re12/11/18 SEX: F Status: REG ER SPEC: [id number] JIMENEZ: 12/11/[address]: Juaquin Abreu MD REQ: [id number] RECD: 12/11/18 STATUS: EVELIO SKAGGS DR: Aly Haq MD _ SOURCE: STOOL SPDESC: ORDERED: Occult Bl, Diag Procedure Result Reported Site Stool Occult Blood (1) Final 12/11/18- 1003 ML Stool Occult Blood Positive * ML - Main Lab . END OF REPORT DEPARTMENT OF PATHOLOGY, [address] [place] [address] Shar Lester M.D. Director [facility] # [id number] 2 [facility] Severe Sepsis and Septic Shock Management Bundle Measure requires all lactic acids initially measuring >2.0 mmol/L be repeated. 3 Because ethnic data is not always readily [...] 15-29 5 Kidney failure <15 (or dialysis) 4 SEE RESULT BELOW Name: RAHEL GALVEZ : [address]: Elias Pierce MD Acct: [id number] Unit: [id number] AGE: 63 Location: [facility] [id number] Re12/11/18 SEX: F Status: ADM Clarita SPEC: [id number] JIMENEZ: 12/11/[address] [facility] [address]: Juaquin Abreu MD REQ: [id number] RECD: 12/11/18 STATUS: EVELIO SKAGGS DR: Aly Haq MD _ SOURCE: URINE SPDESC: ORDERED: Urine Culture Procedure Result Reported Site Urine Culture Final 12/12/18- 1609 ML No Growth (<1,000 CFU/mL) * ML - Main Lab . END OF REPORT DEPARTMENT OF PATHOLOGY, [address] [place] [address] Shar Lester M.D. Director [facility] # [id number] Procedures Date Code Description Status 12/03/2018 42931 Pulse Oximetry Completed 09/08/2017 389689124 Bone Mineral Density Test Completed 09/03/2017 [id number] Mammogram Completed 07/16/2015 [id number] Mammogram Completed 11/21/2013 [id number] Mammogram Completed 06/02/2013 [id number] Mammogram Completed 08/08/2011 [id number] Colonoscopy Completed 08/24/2009 [id number] Mammogram Completed 08/17/2008 [id number] Mammogram Completed Medical Devices Description No Information Available Encounters Type Date Location Provider Dx Diagnosis Office Visit 12/03/2018 [facility] Office Raquel Peralta J06.9 Acute upper 10:15a MARIANNA Ashraf respiratory infection, unspecified R06.02 Shortness of breath Office Visit 11/24/2018 8:00a [facility] Office Priya Ramos I10 Essential ( primary) NASIM Mccormick hypertension J06.9 Acute upper respiratory infection, unspecified I70.293 Oth athscl [place] arteries of extremities, bilateral legs E78.49 Other hyperlipidemia Assessments Date Code Description Provider 12/17/2018 A09 Infectious gastroenteritis and colitis, Raquel Ashraf NP unspecified 12/17/2018 J30.2 Other seasonal allergic rhinitis Raquel Ashraf NP 12/17/2018 L30.9 Dermatitis, unspecified Raquel Ashraf NP 12/17/2018 B37.3 Candidiasis of vulva and vagina Raquel Ashraf NP 12/17/2018 K64.8 Other hemorrhoids Raquel Ashraf NP 12/17/2018 Z23 Encounter for immunization Raquel Ashraf NP 12/03/2018 J06.9 Acute upper respiratory infection, Raquel Ashraf NP unspecified 12/03/2018 R06.02 Shortness of breath Raquel Ashraf NP 11/24/2018 I10 Essential (primary) hypertension NASIM Ruiz 11/24/2018 J06.9 Acute upper respiratory infection, NASIM Ruiz unspecified 11/24/2018 I70.293 Other atherosclerosis of [place] arteries of NASIM Ruiz extremities, joyce 11/24/2018 E78.49 Other hyperlipidemia NASIM Ruiz Plan of Treatment 12/17/2018 - Raquel Ashraf, NPA09 Infectious gastroenteritis and colitis, unspecifiedComments:Continue to follow up with Dr. VelazquezJ30.2 Other seasonal allergic rhinitisComments:Try the different nasal spray and pill.If congestion doesn't clear up we can consider sinus imaging and/or referral to ENT.L30.9 Dermatitis, unspecifiedNew Medication:Betamethasone Dipropionate 0.05 % - apply to affected area on legs twice daily for 14 days.B37.3 Candidiasis of vulva and vaginaNew Medication:Fluconazole 150 mg - one tab by mouth once, may repeat in five daysComments:Call MAHENDRA if condition changes/worsens in any wayK64.8 Other hemorrhoidsComments:Call MAHENDRA if condition changes/worsens in any wayZ23 Encounter for immunizationAllComments:1. Patient has been queried about patient 's goals/preferences and functional/lifestyle goals at relevant visits. If relevant, describe: Has been discussed, noted above2. Treatment goals as explainedto the patient: see above3. Are there barriers to meeting treatment goals? Yes If Yes, please describe: Barriers include possible insurance limits, disease process, and difficulty with lifestyle changes4. Self- Management goals as described to the patient: Yes, see above As always, we strongly encourage a healthy diet and making physical activity a part of your every day life. If you have questions about how or where to start, please contact the office. Functional Status Description No Information Available Mental Status Description No Information Available Referrals Refer to Reason for Referral Status Appt Date Bladimir Velazquez DO COLONOSCOPY Scheduled 01/14/[address] [place], [place] [id number] [phone] Aftab Escobar MD shortness of breath jw Scheduled [address] [facility] [address] [place],[facility]. [address] [phone]
[2019-01-26] MEDS ORDERED: Ondansetron INJ* 2 MG/ML VIAL IV ONE (21:23)
[2019-01-26] MEDS ORDERED: Pantoprazole IV* 40 MG IV ONE (21:23)
[2019-01-26] MEDS ORDERED: NS 0.9% 1000 ML** 1,000 ML IV ONE (21:23)
[2019-01-26] MEDS ORDERED: Ketorolac INJ* 15 MG/ML 1 ML VIAL IV ONE (21:23)
[2019-01-26 21:52] LABS: ABS Basophils 0.1 10^3/ul (0-0.2); ABS Lymphocytes 1.1 10^3/ul (1.0-4.8); ABS Monocytes 0.7 10^3/ul (0-0.8); ABS Neutrophils 12.5 10^3/ul (1.5-7.7); Eosinophil % 0.2 %; Hematocrit 37 % (35-47); Hemoglobin 12.6 g/dL (12.0-16.0); Lymphocyte % 7.5 %; Mean Corpuscular HGB Conc 34 g/dL (31-36); Mean Corpuscular Hemoglobin 29 pg (27-31); Mean Corpuscular Volume 87 fL (80-97); Mean Platelet Volume 7.2 fL (7.4-10.4); Platelet Count 264 10^3/uL (150-450); Red Blood Count 4.28 10^6 /uL (3.70-4.87); Red Cell Distribution Width 13 % (10-15); White Blood Count 14.4 10^3/uL (3.5-10.8)
--- NOTE | 2019-01-26 21:58 | ED ---
Abdominal Pain/Female - HPI Summary HPI Summary: This patient is a 63 year old F presenting to [facility] accompanied by with a chief complaint of epigastric pain since one week ago. Today pt had severe constant chest pain radiating to abdomen and back beginning at 1600. Pt describes is as strong gas pains. Pain has subsided from 9/10 to 4-5/10. The pain began to subside after arriving at the ED. Patient reports lower abdominal tenderness, felling like defecating but was not able to, pain during urination and nausea. Patient denies fever, vomiting. Pt has PMHx of Colitis. Pt had a colonoscopy recently. - History of Current Complaint Chief Complaint: EDAbdPain Stated Complaint: POSS GALL BLADDER ATTACK PER PT Time Seen by Provider: 01/26/19 21:25 Hx Obtained From: Patient ?: No Onset/Duration: Lasting Weeks, Worse Since - today morning Timing: Constant Severity Initially: Severe Severity Currently: Moderate Pain Intensity: 5 Pain Scale Used: 0-10 Numeric Location: Discrete At: RUQ, Epigastric Radiates: Yes Radiates to: Back, Chest Character: Other: - strong gas pains Aggravating Factor(s): Nothing Alleviating Factor(s): Nothing Associated Signs and Symptoms: Positive: Chest Pain, Back Pain, Nausea. Negative: Vomiting Allergies/Adverse Reactions: Allergies Allergy/AdvReac Type Severity Reaction Status Date / Time bupropion [From Wellbutrin] Allergy Unknown Verified 01/26/19 18:45 Reaction Details PMH/Surg Hx/FS Hx/Imm Hx Endocrine/Hematology History: Denies: Hx Diabetes Comment Only: Hx Thyroid Disease - removed Cardiovascular History: Reports: Hx Hypertension - on amlodipine, Other Cardiovascular Problems/Disorders - HIGH CHOLESTEROL Denies: Hx Angina, Hx Coronary Artery Disease, Hx Hypercholesterolemia, Hx Myocardial Infarction, Hx Pacemaker/ICD, Hx Valvular Heart Disease Respiratory History: Denies: Hx Asthma, Hx Chronic Obstructive Pulmonary Disease (COPD) GI History: Denies: Hx Ulcer History: Denies: Hx Renal Disease Musculoskeletal History: Reports: Hx Arthritis - CONNECTIVE TISSUE DISEASE- lupus Denies: Hx Osteoporosis Sensory History: Reports: Hx Cataracts Denies: Hx Contacts or Glasses, Hx Deafness, Hx Hearing Aid Opthamlomology History: Reports: Hx Cataracts Denies: Hx Contacts or Glasses - Cancer History Hx Chemotherapy: No Hx Radiation Therapy: No - Surgical History Surgery Procedure, Year, and Place: [facility] [place]. colonoscopy Hx Anesthesia Reactions: No Infectious Disease History: No Infectious Disease History: Denies: Hx Clostridium Difficile, Hx Hepatitis, Hx Human Immunodeficiency Virus (HIV), Hx of Known/Suspected MRSA, Hx Shingles, Hx Tuberculosis, Hx Known/ Suspected VRE, Hx Known/Suspected VRSA, History Other Infectious Disease, Traveled Outside the [place] in Last 30 Days - Family History Known Family History: Positive: Cardiac Disease, Hypertension, Diabetes, Other - CVA - Social History Alcohol Use: Occasionally Alcohol Amount: 2 x month Hx Substance Use: No Substance Use Type: Reports: None Hx Tobacco Use: No Smoking Status (MU): Never Smoked Tobacco Amount Used/How Often: 1 PPD X 25 YEARS - Additional Comments History Additional Comments: Home Medications Medication Instructions Recorded Confirmed Type Hydroxychloroquine TAB* [Plaquenil 2 tab PO QPM 04/03/14 01/14/19 History TAB*] Levothyroxine TAB* [Synthroid TAB*] 50 mcg PO QAM 02/02/18 01/14/19 History amLODIPine TAB* [Norvasc 5 mg TAB*] 5 mg PO QPM 02/02/18 01/14/19 History Albuterol HFA INHALER* [Ventolin 2 puff INH Q4H PRN #1 mdi 11/21/18 01/14/19 Rx HFA Inhaler*] Budesonide/Formote 160/4.5(NF) 1 puff INH BID 12/11/18 01/14/19 History [Symbicort 160/4.5 (NF)] Aspirin 81 mg CHEW TAB* [Aspirin 81 mg PO DAILY 01/12/19 01/14/19 History Low Dose TAB*] Ibuprofen TAB* [Motrin TAB* 800 MG] 800 mg PO Q6H PRN 01/12/19 01/14/19 History Review of Systems Negative: Fever Positive: Chest Pain Positive: Abdominal Pain, Nausea. Negative: Vomiting Positive: dysuria Positive: Other - Back pain All Other Systems Reviewed And Are Negative: Yes Physical Exam - Summary Physical Exam Summary: General: Well-developed, Well-nourished Female. No acute distress. HEENT: Normocephalic, Atraumatic. Eyes: Conjuctiva normal, PERRL. Ears: TMs within normal limits. Nares: (-) discharge, (-) erythema. Oropharynx: Clear, mucous membranes moist, (-) exudates. Neck: Soft, FROM, (-) lymphadenopathy, (-) thyromegaly, (-) JVD. Cardiovascular: Normal sinus rhythm, (-) murmur. Lungs: Clear to auscultation bilaterally (-) wheezes, (-) rales, (-) rhonchi. Abdomen: Soft, Mild tenderness in epigastric and RUQ , non-distended, (-) organomegaly, normal bowel sounds. Back: (-) CVA tenderness Extremities: No edema. Skin: Warm, dry, (-) rash. Neuro: Alert and oriented x3, no focal deficits. Psychiatric: Mood normal, affect normal. Triage Information Reviewed: Yes Vital Signs On Initial Exam: Initial Vitals Temp Pulse Resp BP Pulse Ox 97.8 F 86 16 139/91 100 01/26/19 18:41 01/26/19 18:41 01/26/19 18:41 01/26/19 18:41 01/26/19 18:41 Vital Signs Reviewed: Yes Procedures - Sedation Patient Received Moderate/Deep Sedation with Procedure: No Diagnostics - Vital Signs Vital Signs Temp Pulse Resp BP Pulse Ox 01/26/19 18:41 97.8 F 86 16 139/91 100 - Laboratory Lab Results: Lab Results 01/26/19 Range/Units 21:42 WBC 14.4 H (3.5-10.8) 10^3/uL RBC 4.28 (3.70-4.87) 10^6 /uL Hgb 12.6 (12.0-16.0) g/dL Hct 37 (35-47) % MCV 87 (80-97) fL MCH 29 (27-31) pg MCHC 34 (31-36) g/dL RDW 13 (10-15) % Plt Count 264 (150-450) 10^3/uL MPV 7.2 L (7.4-10.4) fL Neut % (Auto) 87.0 % Lymph % (Auto) 7.5 % [place] % (Auto) 4.9 % Eos % (Auto) 0.2 % Baso % (Auto) 0.4 % Absolute Neuts (auto) 12.5 H (1.5-7.7) 10^3/ul Absolute Lymphs (auto) 1.1 (1.0-4.8) 10^3/ul Absolute Monos (auto) 0.7 (0-0.8) 10^3/ul Absolute Eos (auto) 0.0 (0-0.6) 10^3/ul Absolute Basos (auto) 0.1 (0-0.2) 10^3/ul Absolute Nucleated RBC 0.0 10^3/ul Nucleated RBC % 0.0 Result Diagrams: 01/26/19 21:42 01/26/19 21:42 Lab Statement: Any lab studies that have been ordered have been reviewed, and results considered in the medical decision making process. - Ultrasound Abdomen US Ultrasound Interpretation Completed By: Radiologist Summary of Ultrasound Findings: Abdomen US reveals, per radiologist, IMPRESSION : Nonspecific positive sonographic Red sign with no additional findings of acute cholecystitis. ED physician has reviewed this radiology report. Re-Evaluation - Re-Evaluation First Eval Re-Evaluation Time: 00:24 Comment: I have discussed results with the patient. Discussed symptoms that warrant immediate return to ED Abdominal Pain Fem Course/Dx - Course Course Of Treatment: This patient is a 63 year old F presenting to [facility] accompanied by with a chief complaint of epigastric pain since one week ago. Today pt had severe constant chest pain radiating to abdomen and back beginning at 1600. Pt describes is as strong gas pains. Pain has subsided from 9/10 to 4-5/10. The pain began to subside after arriving at the ED. Patient reports lower abdominal tenderness, felling like defecating but was not able to, pain during urination and nausea. Patient denies fever, vomiting. Pt has PMHx of Colitis. Pt had a colonoscopy recently. Physical exam findings are nml except mild tenderness in epigastric and RUQ. Blood work obtained. C- Reactive protein is 9.63, WBC is 14.4. UA obtained. Abdomen US reveals, per radiologist, IMPRESSION: Nonspecific positive sonographic Red sign with no additional findings of acute cholecystitis. In the ED course the patient was given Toradol, Zofran, Protonix, and fluids. Patient will be discharged with follow up from supervisor boarding. Pt will talk about HIDA scan, and continue taking Protonix, and macrobid. She should follow a low fat diet and take ibuprofen for pain. The patient is agreeable with this plan. - Diagnoses Provider Diagnoses: Biliary colic Discharge ED - Sign-Out/Discharge Documenting (check all that apply): Patient Departure - Discharge - Discharge Plan Condition: Stable Disposition: HOME Patient Education Materials: Biliary Colic (ED) Referrals: Aly Haq MD [Primary Care Provider] - 3 Days Additional Instructions: Please follow up with your supervisor boarding within three days. Talk about a HIDA scan. Continue taking protonix and macrobid. Follow a low-fat diet. Please return to ED for any new or worsening symptoms. - Billing Disposition and Condition Condition: STABLE Disposition: Home - Attestation Statements Document Initiated by Bonnie: Yes Documenting Scribe: Margaret George Provider For Whom Bonnie is Documenting (Include Credential): Michelle Eddy MD Scribe Attestation: Margaret Dumont scribed for Michelle Eddy MD on 01/27/19 at 0154. Scribe Documentation Reviewed: Yes Provider Attestation: The documentation as recorded by the Margaret lea accurately reflects the service I personally performed and the decisions made by Michelle clemons MD Status of Scribe Document: Viewed
[2019-01-26 22:06] LABS: Albumin 4.1 g/dL (3.2-5.2); Albumin/Globulin Ratio 1.4 (1-3); BUN/Creatinine Ratio 16.5 (8-20); C Reactive Protein 9.63 mg/L (<8.01); EGFR African American 89.2 (>60); EGFR Non-African American 73.7 (>60); Globulin 2.9 g/dL (2-4); Potassium 3.8 mmol/L (3.5-5.0); Total Bilirubin 0.5 mg/dL (0.2-1.0)
[2019-01-26 22:09] LABS: Urine Appearance Clear; Urine Bacteria Absent (Absent); Urine Bilirubin Negative (Negative); Urine Blood Negative (Negative); Urine Color Yellow; Urine Glucose Negative (Negative); Urine Ketones Negative (Negative); Urine Nitrite Negative (Negative); Urine Protein Negative (Negative); Urine Red Blood Cell Absent (Absent); Urine Urobilinogen Negative (Negative); Urine White Blood Cell Trace(0-5/hpf) (Absent)
[2019-01-27 00:41] VITALS: BP 136/87
== END 2019-01-27 00:40 | disposition home or self-care (01) ==
LOC: ED 18:30
DX: K80.50 Calculus of bile duct without cholangitis or cholecystitis without obstruction (principal); R07.9 Chest pain, unspecified; M54.9 Dorsalgia, unspecified; R11.0 Nausea; I10 Essential (primary) hypertension; R30.0 Dysuria
CPT/HCPCS: 36415; 76705; 80053; 81003; 81015; 83605; 83690; 85025; 86140; 87086; 99282